=== PATIENT | male | born 1980 | race Caucasian/White ===

== ENCOUNTER 2017-10-05 14:59 | Emergency (ER) | payer MEDICARE, OTHER ==
[~2017-10-05] VITALS: Ht 190.5 cm; Wt 127.5 kg
[~2017-10-05 14:59] MED LIST: ALBU90OI INH; CYCL10 PO; DOXY100 PO; FLUO10 PO; FLUO20 PO; GABA100 PO; IBUP400 PO; IBUP600 PO; LANS15EC PO; NAPR220 PO; OXYACE5T PO; Percocet 5-3251 EACH PO; Synthroid25 MCG PO; TRAM50 PO; Valium5 MG PO; Venlafaxine HC100 MG PO
[2017-10-05] MEDS ORDERED: ZIPR20 PO (16:50)
[2017-10-05] MEDS ORDERED: NAPR550 PO (17:18)
[2017-10-05] MEDS ORDERED: Robaxin500 MG PO (17:18)
== END 2017-10-05 17:22 | disposition home or self-care (01) ==
LOC: ER 14:59
DX: S80.01XA Contusion of right knee, initial encounter (principal); M54.5 Low back pain; M54.6 Pain in thoracic spine; F17.200 Nicotine dependence, unspecified, uncomplicated; Z88.0 Allergy status to penicillin; Z88.8 Allergy status to other drugs, medicaments and biological substances; Z79.899 Other long term (current) drug therapy; V03.99XA Pedestrian with other conveyance injured in collision with car, pick-up truck or van, unspecified whether traffic or nontraffic accident, initial encounter
CPT/HCPCS: 72070; 72100; 73564; 96372; 99283; J1885

== ENCOUNTER 2017-10-06 08:35 | Day surgery (SDC) | payer MEDICARE, OTHER ==
[~2017-10-06 08:35] MED LIST changes: +NAPR550 PO; +Robaxin500 MG PO; +ZIPR20 PO
== END 2017-10-06 22:56 | disposition home or self-care (01) ==
LOC: US 08:35
PROVIDERS: Radiology Diagnostic Radiology
PROC: 0FB03ZX Excision of Liver, Percutaneous Approach, Diagnostic (ICD-10-PCS; principal; 2017-10-06 11:00)
DX: K76.0 Fatty (change of) liver, not elsewhere classified (principal); J45.909 Unspecified asthma, uncomplicated; F41.9 Anxiety disorder, unspecified; R74.8 Abnormal levels of other serum enzymes
CPT/HCPCS: 47000; 76942; 88307; 88313

== ENCOUNTER 2019-05-27 10:47 | Emergency (ER) | payer MEDICARE, OTHER ==
[~2019-05-27] VITALS: Ht 190.5 cm; Wt 136.1 kg
[2019-05-27] MEDS ORDERED: CYCL10 PO (11:18)
[2019-05-27] MEDS ORDERED: Naprosyn500 MG PO (11:18)
[2019-05-27] MEDS ORDERED: Norco 10-325 T1 EACH PO (11:18)
== END 2019-05-27 13:02 | disposition home or self-care (01) ==
LOC: ER 10:47
DX: M62.830 Muscle spasm of back (principal); F20.9 Schizophrenia, unspecified; F32.9 Major depressive disorder, single episode, unspecified; F17.200 Nicotine dependence, unspecified, uncomplicated; Z88.0 Allergy status to penicillin; Z88.8 Allergy status to other drugs, medicaments and biological substances; Z79.899 Other long term (current) drug therapy
CPT/HCPCS: 72070; 72100; 96372; 99283-25; J1885

== ENCOUNTER 2019-07-24 20:58 | Emergency (ER) | payer MEDICARE, OTHER ==
[~2019-07-24] VITALS: Ht 188 cm; Wt 129.3 kg
[~2019-07-24 20:58] MED LIST changes: +Naprosyn500 MG PO; +Norco 10-325 T1 EACH PO
[2019-07-25 00:26] LABS: Influenza A Negative (NEGATIVE); Influenza B Negative (NEGATIVE)
[2019-07-25] MEDS ORDERED: Prednisone50 MG PO (00:46)
[2019-07-25] MEDS ORDERED: Zithromax250 MG PO (00:46)
[2019-07-25] MEDS ORDERED: ALBU90OI INH (00:46)
== END 2019-07-25 01:05 | disposition home or self-care (01) ==
LOC: ER 20:58
PROVIDERS: Emergency Medicine
DX: J45.901 Unspecified asthma with (acute) exacerbation (principal); F17.200 Nicotine dependence, unspecified, uncomplicated; Z88.0 Allergy status to penicillin; Z88.8 Allergy status to other drugs, medicaments and biological substances
CPT/HCPCS: 71046; 87804; 94640; 99285-25; J1100

== ENCOUNTER 2020-11-06 12:57 | Emergency (ER) | payer MEDICARE, OTHER ==
[~2020-11-06] VITALS: Ht 185.4 cm; Wt 129.3 kg
[~2020-11-06 12:57] MED LIST changes: +GABAPENTIN600 MG PO; +Prednisone50 MG PO; +VENLAFAXINE HC225 MG PO; +ZIPRASIDONE HCL80 MG PO; +Zithromax250 MG PO
[2020-11-06 15:34] LABS: BASOPHILS ABSOLUTE AUTO 0.09 K/mm3 (0.00-0.23); BASOPHILS PERCENT AUTO 1 % (0-2); EOSINOPHILS ABSOLUTE AUTO 0.77 K/mm3 (0.00-0.68); EOSINOPHILS PERCENT AUTO 10 % (0-6); IMMATURE GRAN ABSOLUTE AUTO 0.02 K/mm3 (0.00-0.10); IMMATURE GRAN PERCENT AUTO 0 % (0-1); LYMPHOCYTES PERCENT AUTO 36 % (21-46); MONOCYTES ABSOLUTE AUTO 0.85 K/mm3 (0.16-1.47); MONOCYTES PERCENT AUTO 11 % (4-13); Mean Corpuscular HGB 23.1 pg (26.0-34.0); Mean Corpuscular HGB Conc 30.6 g/dL (31.5-36.5); Mean Corpuscular Volume 76 fL (80-100); Mean Platelet Volume 10.7 fL (9.1-12.4); NEUTROPHILS ABSOLUTE AUTO 3.29 K/mm3 (1.96-9.15); NEUTROPHILS PERCENT AUTO 42 % (41-73); Platelet Count 333 K/mm3 (150-400); RDW Standard Deviation 45.8 fL (35.1-46.3); Red Blood Cell Count 4.76 M/mm3 (4.30-5.90); White Blood Cell Count 7.82 K/mm3 (4.00-11.30)
[2020-11-06 15:48] LABS: Alanine Aminotransfer (ALT/SGP 86 U/L (12-78); Albumin, Blood 3.5 g/dL (3.4-5.0); Alk Phos 95 U/L (50-136); Anion Gap 5 mmol/L (6-16); Aspartate Aminotrans (AST/SGOT 43 U/L (12-37); Bilirubin, Total 0.2 mg/dL (0.1-1.0); Blood Urea Nitrogen 10 mg/dL (8-24); Bun/Creatinine Ratio 10.1 (12.0-20.0); CO2, Blood 29 mmol/L (21-32); Calcium, Blood 8.6 mg/dL (8.5-10.1); Chloride, Blood 108 mmol/L (98-108); Creatinine, Blood 0.99 mg/dL (0.60-1.20); Ethanol (Alcohol), Blood, Med <3 mg/dL; Globulin, Blood 3.5 g/dL (2.2-4.0); Glomerular Filtration Rate >60 (60-); Glucose, Blood 90 mg/dL (70-99); Potassium, Blood 3.9 mmol/L (3.5-5.5); Salicylate 3.5 mg/dL (2.8-20.0); Sodium, Blood 142 mmol/L (136-145)
[2020-11-06 15:49] LABS: Acetaminophen, Random <2.0 ug/mL (10.0-30.0)
[2020-11-06 16:55] LABS: Source, Urine Clean Catch
[2020-11-06 17:00] LABS: Bilirubin, Urine Neg (Neg); Blood, Urine Neg (Neg); Glucose Qualitative, Urine Neg (Neg); Ketones, Urine Neg (Neg); Leukocyte Esterase, Urine Neg (Neg); Nitrite, Urine Neg (Neg); Protein, Urine 1+ (Neg); Urobilinogen, Urine NORM (Normal)
[2020-11-06 17:17] LABS: U Amphetamine Screen Not Detected; U Barbituate Screen Not Detected; U Benzodiazapine Screen Not Detected; U Buprenorphine Screen Not Detected; U Cannabinoids Screen Not Detected; U Cocaine Screen Not Detected; U Methadone Screen Not Detected; U Methamphetamine Screen Not Detected; U Opiates Screen Not Detected; U Oxycodone Screen Not Detected; U Phencyclidine Screen Not Detected; U Propoxyphene Screen Not Detected
[2020-11-06 17:22] LABS: Color, Urine Yellow (P-Yellow)
[2020-11-06 17:23] LABS: Appearance, Urine Clear (Clear)
== END 2020-11-06 18:15 | disposition home or self-care (01) ==
LOC: ER 12:57
PROVIDERS: Physician Assistant
DX: F44.1 Dissociative fugue (principal); F17.200 Nicotine dependence, unspecified, uncomplicated; Z88.0 Allergy status to penicillin; Z88.8 Allergy status to other drugs, medicaments and biological substances
CPT/HCPCS: 36415; 70450; 72125; 80053; 82947; 85025; 93005; 93010; 99285-25; G0480; L0160

== ENCOUNTER 2021-02-27 10:51 | Day surgery (SDC) | payer MEDICARE, OTHER ==
[~2021-02-27] VITALS: Ht 188 cm; Wt 124.4 kg
[~2021-02-27 10:51] MED LIST changes: +ALBU90OI; +DOXY100; +FAMO20; +Neurontin 300300 MG; +TRAZ100; +VRAYLAR4.5 MG
== END 2021-02-27 12:53 | disposition home or self-care (01) ==
LOC: ORSCSDS 10:51
PROVIDERS: Student in an Organized Health Care Education/Training Program
PROC: 0DB68ZX Excision of Stomach, Via Natural or Artificial Opening Endoscopic, Diagnostic (ICD-10-PCS; principal; 2021-02-27 12:15)
PROC: 0DB98ZX Excision of Duodenum, Via Natural or Artificial Opening Endoscopic, Diagnostic (ICD-10-PCS; principal; 2021-02-27 12:15)
PROC: 0DB58ZX Excision of Esophagus, Via Natural or Artificial Opening Endoscopic, Diagnostic (ICD-10-PCS; principal; 2021-02-27 12:15)
PROC: 0DBF8ZX Excision of Right Large Intestine, Via Natural or Artificial Opening Endoscopic, Diagnostic (ICD-10-PCS; principal; 2021-02-27 12:15)
PROC: 0DB48ZX Excision of Esophagogastric Junction, Via Natural or Artificial Opening Endoscopic, Diagnostic (ICD-10-PCS; principal; 2021-02-27 12:15)
PROC: 0DBP8ZX Excision of Rectum, Via Natural or Artificial Opening Endoscopic, Diagnostic (ICD-10-PCS; principal; 2021-02-27 12:15)
PROC: 0DBG8ZX Excision of Left Large Intestine, Via Natural or Artificial Opening Endoscopic, Diagnostic (ICD-10-PCS; principal; 2021-02-27 12:15)
DX: R10.9 Unspecified abdominal pain (principal); K21.9 Gastro-esophageal reflux disease without esophagitis; K44.9 Diaphragmatic hernia without obstruction or gangrene; D64.9 Anemia, unspecified; R19.7 Diarrhea, unspecified; Z80.0 Family history of malignant neoplasm of digestive organs; F41.8 Other specified anxiety disorders; F20.9 Schizophrenia, unspecified; G47.33 Obstructive sleep apnea (adult) (pediatric); Z79.899 Other long term (current) drug therapy; F17.210 Nicotine dependence, cigarettes, uncomplicated
CPT/HCPCS: 88305; 88342; J2704; J7120

== ENCOUNTER 2021-07-22 22:58 | Emergency (ER) | payer MEDICARE, OTHER ==
[~2021-07-22] VITALS: Ht 188 cm; Wt 132.9 kg
[2021-07-23 00:43] LABS: BASOPHILS ABSOLUTE AUTO 0.08 K/mm3 (0.00-0.23); BASOPHILS PERCENT AUTO 1 % (0-2); EOSINOPHILS ABSOLUTE AUTO 0.66 K/mm3 (0.00-0.68); EOSINOPHILS PERCENT AUTO 8 % (0-6); Hematocrit 35.1 % (37.0-53.0); Hemoglobin 10.1 g/dL (13.5-17.5); IMMATURE GRAN ABSOLUTE AUTO 0.05 K/mm3 (0.00-0.10); IMMATURE GRAN PERCENT AUTO 1 % (0-1); LYMPHOCYTES ABSOLUTE AUTO 3.18 K/mm3 (0.84-5.20); LYMPHOCYTES PERCENT AUTO 37 % (21-46); MONOCYTES ABSOLUTE AUTO 0.84 K/mm3 (0.16-1.47); MONOCYTES PERCENT AUTO 10 % (4-13); Mean Corpuscular HGB 19.5 pg (26.0-34.0); Mean Corpuscular HGB Conc 28.8 g/dL (31.5-36.5); Mean Corpuscular Volume 68 fL (80-100); Mean Platelet Volume 10.3 fL (9.1-12.4); NEUTROPHILS ABSOLUTE AUTO 3.73 K/mm3 (1.96-9.15); NEUTROPHILS PERCENT AUTO 44 % (41-73); Platelet Count 368 K/mm3 (150-400); RDW Coefficient Variation 20.8 % (11.7-14.2); RDW Standard Deviation 49.7 fL (35.1-46.3); Red Blood Cell Count 5.18 M/mm3 (4.30-5.90); White Blood Cell Count 8.54 K/mm3 (4.00-11.30)
[2021-07-23 01:04] LABS: Alanine Aminotransfer (ALT/SGP 46 U/L (12-78); Albumin, Blood 3.4 g/dL (3.4-5.0); Albumin/Globulin Ratio 0.9 (0.8-1.8); Alk Phos 80 U/L (50-136); Anion Gap 4 mmol/L (6-16); Aspartate Aminotrans (AST/SGOT 23 U/L (12-37); Bilirubin, Total 0.1 mg/dL (0.1-1.0); Blood Urea Nitrogen 13 mg/dL (8-24); Bun/Creatinine Ratio 11.5 (12.0-20.0); CO2, Blood 28 mmol/L (21-32); Calcium, Blood 8.8 mg/dL (8.5-10.1); Chloride, Blood 111 mmol/L (98-108); Creatinine, Blood 1.13 mg/dL (0.60-1.20); Globulin, Blood 3.6 g/dL (2.2-4.0); Glomerular Filtration Rate >60 (60-); Glucose, Blood 113 mg/dL (70-99); Potassium, Blood 3.8 mmol/L (3.5-5.5); Sodium, Blood 143 mmol/L (136-145); Troponin I <0.015 ng/mL (0.000-0.040)
== END 2021-07-23 02:42 | disposition home or self-care (01) ==
LOC: ER 22:58
PROVIDERS: Emergency Medicine
DX: R07.9 Chest pain, unspecified (principal); E03.9 Hypothyroidism, unspecified; F20.9 Schizophrenia, unspecified; F17.200 Nicotine dependence, unspecified, uncomplicated
CPT/HCPCS: 71046; 80053; 83690; 84484; 85025; 93005; 93010

== ENCOUNTER 2023-03-30 16:28 | Emergency (ER) | payer MEDICARE, OTHER ==
[~2023-03-30] VITALS: Ht 188 cm; Wt 158.8 kg
[~2023-03-30 16:28] MED LIST changes: +NEURONTIN300 MG PO; +NORTRIPTYLINE H MC; +VENL75ER PO; +VRAYLAR6 MG PO
[2023-03-30 17:02] LABS: BASOPHILS ABSOLUTE AUTO 0.07 K/mm3 (0.00-0.23); BASOPHILS PERCENT AUTO 1 % (0-2); EOSINOPHILS ABSOLUTE AUTO 0.45 K/mm3 (0.00-0.68); EOSINOPHILS PERCENT AUTO 7 % (0-6); Hematocrit 38.6 % (37.0-53.0); Hemoglobin 12.1 g/dL (13.5-17.5); IMMATURE GRAN ABSOLUTE AUTO 0.02 K/mm3 (0.00-0.10); IMMATURE GRAN PERCENT AUTO 0 % (0-1); LYMPHOCYTES ABSOLUTE AUTO 1.97 K/mm3 (0.84-5.20); LYMPHOCYTES PERCENT AUTO 31 % (21-46); MONOCYTES ABSOLUTE AUTO 0.88 K/mm3 (0.16-1.47); MONOCYTES PERCENT AUTO 14 % (4-13); Mean Corpuscular HGB 22.7 pg (26.0-34.0); Mean Corpuscular HGB Conc 31.3 g/dL (31.5-36.5); Mean Corpuscular Volume 72 fL (80-100); Mean Platelet Volume 10.2 fL (9.1-12.4); NEUTROPHILS ABSOLUTE AUTO 2.96 K/mm3 (1.96-9.15); NEUTROPHILS PERCENT AUTO 47 % (41-73); Platelet Count 332 K/mm3 (150-400); RDW Coefficient Variation 17.6 % (11.7-14.2); RDW Standard Deviation 45.6 fL (35.1-46.3); Red Blood Cell Count 5.34 M/mm3 (4.30-5.90); White Blood Cell Count 6.35 K/mm3 (4.00-11.30)
[2023-03-30 17:37] LABS: Albumin/Globulin Ratio 1.2 (0.8-1.8); Bilirubin, Total 0.2 mg/dL (0.1-1.0); Bun/Creatinine Ratio 10.6 (12.0-20.0); Calcium, Blood 8.8 mg/dL (8.5-10.1); Creatinine, Blood 1.04 mg/dL (0.60-1.20); Globulin, Blood 3.3 g/dL (2.2-4.0); Potassium, Blood 3.7 mmol/L (3.5-5.5); Total Protein, Blood 7.3 g/dL (6.4-8.2)
[2023-03-30 20:06] VITALS: BP 133/90
== END 2023-03-30 20:09 | disposition left against medical advice (07) ==
LOC: ER 16:28
PROVIDERS: Student in an Organized Health Care Education/Training Program
DX: R07.9 Chest pain, unspecified (principal); Z53.21 Procedure and treatment not carried out due to patient leaving prior to being seen by health care provider
CPT/HCPCS: 71046; 80053; 84484; 85025; 93005; 93010; 99283-25

== ENCOUNTER 2024-01-20 11:59 | Emergency (ER) | payer MEDICARE, OTHER ==
[~2024-01-20] VITALS: Ht 188 cm; Wt 131.5 kg
[~2024-01-20 11:59] MED LIST changes: +BACL10 PO; +MELO7.5 PO; +PERP4 PO
[2024-01-20 12:50] VITALS: BP 132/85
[2024-01-20 13:12] LABS: BASOPHILS ABSOLUTE AUTO 0.08 K/mm3 (0.00-0.23); BASOPHILS PERCENT AUTO 1 % (0-2); EOSINOPHILS ABSOLUTE AUTO 0.38 K/mm3 (0.00-0.68); EOSINOPHILS PERCENT AUTO 5 % (0-6); Hematocrit 41.6 % (37.0-53.0); IMMATURE GRAN ABSOLUTE AUTO 0.03 K/mm3 (0.00-0.10); IMMATURE GRAN PERCENT AUTO 0 % (0-1); LYMPHOCYTES ABSOLUTE AUTO 2.45 K/mm3 (0.84-5.20); LYMPHOCYTES PERCENT AUTO 35 % (21-46); MONOCYTES ABSOLUTE AUTO 0.72 K/mm3 (0.16-1.47); MONOCYTES PERCENT AUTO 10 % (4-13); Mean Corpuscular HGB 23.6 pg (26.0-34.0); Mean Corpuscular HGB Conc 31.3 g/dL (31.5-36.5); Mean Corpuscular Volume 76 fL (80-100); NEUTROPHILS ABSOLUTE AUTO 3.36 K/mm3 (1.96-9.15); NEUTROPHILS PERCENT AUTO 48 % (41-73); Platelet Count 466 K/mm3 (150-400); RDW Coefficient Variation 16.1 % (11.7-14.2); RDW Standard Deviation 43.5 fL (35.1-46.3); White Blood Cell Count 7.02 K/mm3 (4.00-11.30)
[2024-01-20 13:44] LABS: Ethanol (Alcohol), Blood, Med <3 mg/dL; Salicylate 5.9 mg/dL (2.8-20.0)
[2024-01-20 13:47] LABS: Acetaminophen, Random <2.0 ug/mL (10.0-30.0); Alanine Aminotransfer (ALT/SGP 39 U/L (12-78); Albumin, Blood 3.9 g/dL (3.4-5.0); Alk Phos 114 U/L (50-136); Anion Gap 7 mmol/L (3-11); Aspartate Aminotrans (AST/SGOT 22 U/L (12-37); Bilirubin, Total 0.2 mg/dL (0.1-1.0); Blood Urea Nitrogen 12 mg/dL (8-24); Bun/Creatinine Ratio 12.5 (12.0-20.0); CO2, Blood 28 mmol/L (21-32); Calcium, Blood 9.3 mg/dL (8.5-10.1); Chloride, Blood 113 mmol/L (98-108); Creatinine, Blood 0.96 mg/dL (0.60-1.20); Glomerular Filtration Rate 102 (60-); Glucose, Blood 99 mg/dL (70-99); Potassium, Blood 4.5 mmol/L (3.5-5.5); Sodium, Blood 143 mmol/L (136-145); Total Protein, Blood 7.9 g/dL (6.4-8.2)
== END 2024-01-20 14:49 | disposition home or self-care (01) ==
LOC: ER 11:59
PROVIDERS: Nurse Practitioner
DX: F23 Brief psychotic disorder (principal); I10 Essential (primary) hypertension; F17.200 Nicotine dependence, unspecified, uncomplicated
CPT/HCPCS: 80053; 85025; 93005; 93010; 99283-25; G0480

== ENCOUNTER 2024-06-08 16:44 | Emergency (ER) | payer MEDICARE, OTHER ==
[~2024-06-08] VITALS: Ht 188 cm; Wt 139.2 kg
[2024-06-08 17:19] VITALS: BP 139/97
[2024-06-08] MEDS ORDERED: [UNRECOGNIZED DRUG - CODE] (19:26)
== END 2024-06-08 19:50 | disposition home or self-care (01) ==
LOC: ER 16:44
DX: S76.311A Strain of muscle, fascia and tendon of the posterior muscle group at thigh level, right thigh, initial encounter (principal); M25.561 Pain in right knee; G89.29 Other chronic pain; I10 Essential (primary) hypertension; F17.200 Nicotine dependence, unspecified, uncomplicated; Z79.899 Other long term (current) drug therapy; Z88.0 Allergy status to penicillin; Z88.8 Allergy status to other drugs, medicaments and biological substances
CPT/HCPCS: 73552; 99283-25

== ENCOUNTER 2024-09-12 06:35 | Emergency (ER) | payer MEDICARE, OTHER ==
[~2024-09-12] VITALS: Ht 188 cm; Wt 139.7 kg
[~2024-09-12 06:35] MED LIST changes: +[UNRECOGNIZED DRUG - CODE]
[2024-09-12 06:43] VITALS: BP 136/75
== END 2024-09-12 08:40 | disposition home or self-care (01) ==
LOC: ER 06:35
DX: J06.9 Acute upper respiratory infection, unspecified (principal); J45.909 Unspecified asthma, uncomplicated; Z88.0 Allergy status to penicillin
CPT/HCPCS: 99283

== ENCOUNTER 2024-12-17 00:21 | Observation (INO) | payer MEDICARE, OTHER ==
[~2024-12-17] VITALS: Ht 188 cm; Wt 131.5 kg
[2024-12-17 01:04] LABS: BASOPHILS PERCENT AUTO 1 % (0-2); EOSINOPHILS PERCENT AUTO 7 % (0-6); Hematocrit 43.9 % (37.0-53.0); Hemoglobin 14.3 g/dL (13.5-17.5); IMMATURE GRAN ABSOLUTE AUTO 0.02 K/mm3 (0.00-0.10); IMMATURE GRAN PERCENT AUTO 0 % (0-1); LYMPHOCYTES ABSOLUTE AUTO 2.91 K/mm3 (0.84-5.20); LYMPHOCYTES PERCENT AUTO 34 % (21-46); MONOCYTES ABSOLUTE AUTO 0.85 K/mm3 (0.16-1.47); MONOCYTES PERCENT AUTO 10 % (4-13); Mean Corpuscular HGB Conc 32.6 g/dL (31.5-36.5); Mean Corpuscular Volume 80 fL (80-100); Mean Platelet Volume 10.8 fL (9.1-12.4); NEUTROPHILS ABSOLUTE AUTO 4.15 K/mm3 (1.96-9.15); NEUTROPHILS PERCENT AUTO 48 % (41-73); Platelet Count 301 K/mm3 (150-400); RDW Coefficient Variation 15.9 % (11.7-14.2); RDW Standard Deviation 46.1 fL (35.1-46.3); White Blood Cell Count 8.63 K/mm3 (4.00-11.30)
[2024-12-17 01:17] LABS: Albumin, Blood 3.8 g/dL (3.4-5.0); Albumin/Globulin Ratio 1.1 (0.8-1.8); Bilirubin, Total 0.2 mg/dL (0.1-1.0); Bun/Creatinine Ratio 18.1 (12.0-20.0); Calcium, Blood 8.6 mg/dL (8.5-10.1); Creatinine, Blood 0.88 mg/dL (0.60-1.20); Globulin, Blood 3.5 g/dL (2.2-4.0); Total Protein, Blood 7.3 g/dL (6.4-8.2)
[2024-12-17] MEDS ORDERED: Aspirin 325 MG Tab PO ONE (01:40)
[2024-12-17 01:47] LABS: U Amphetamine Screen Not Detected; U Barbituate Screen Not Detected; U Benzodiazapine Screen Not Detected; U Buprenorphine Screen Not Detected; U Cannabinoids Screen Not Detected; U Cocaine Screen Not Detected; U Methadone Screen Not Detected; U Methamphetamine Screen Not Detected; U Opiates Screen Not Detected; U Oxycodone Screen Not Detected; U Phencyclidine Screen Not Detected
[2024-12-17 01:51] LABS: Lithium <0.20 mmol/L (0.60-1.20)
[2024-12-17] MEDS ORDERED: Ondansetron HCl 2 MG / ML 2ML Vial IV PRN (03:35)
[2024-12-17] MEDS ORDERED: Clopidogrel Bisulfate 75 MG Tab PO SCH (04:00)
[2024-12-17] MEDS ORDERED: Atorvastatin 40 MG Tab PO SCH (04:00)
[2024-12-17 04:14] LABS: Free Thyroxine 0.86 ng/dL (0.70-1.60); Thyroid Stimulating Hormone 6.61 uIU/mL (0.360-4.800)
[2024-12-17 04:32] VITALS: BP 120/74
[2024-12-17 06:17] VITALS: BP 136/87
[2024-12-17 07:27] VITALS: BP 119/89
[2024-12-17] MEDS ORDERED: CARIPRAZINE HYDROCHLORIDE 6 MG PO SCH (09:00)
[2024-12-17] MEDS ORDERED: Gabapentin 300 MG Cap PO SCH (09:00)
[2024-12-17] MEDS ORDERED: Aspirin 81 MG Chew PO SCH (09:00)
[2024-12-17] MEDS ORDERED: Enoxaparin 40 MG/0.4 ML SYR SC SCH (09:00)
[2024-12-17 11:39] VITALS: BP 134/90
[2024-12-17 15:37] VITALS: BP 125/90
[2024-12-17 19:33] VITALS: BP 135/90
[2024-12-18] VITALS (20 sets, daily range): BP systolic 122–153; BP diastolic 72–107
[2024-12-18] MEDS ORDERED: Lithium Carbonate 300 MG TabCR PO SCH (00:50)
[2024-12-18] MEDS ORDERED: ATROPINE SULFATE 1 MG/ML IV ONE (03:40)
[2024-12-18] MEDS ORDERED: Atropine Sulfate 0.1 MG/ML 10ML SYR IV ONE ×2 (04:10→05:30)
[2024-12-18 05:17] LABS: BASOPHILS ABSOLUTE AUTO 0.07 K/mm3 (0.00-0.23); BASOPHILS PERCENT AUTO 1 % (0-2); EOSINOPHILS ABSOLUTE AUTO 0.53 K/mm3 (0.00-0.68); EOSINOPHILS PERCENT AUTO 8 % (0-6); Hematocrit 40.7 % (37.0-53.0); Hemoglobin 13.2 g/dL (13.5-17.5); IMMATURE GRAN ABSOLUTE AUTO 0.02 K/mm3 (0.00-0.10); IMMATURE GRAN PERCENT AUTO 0 % (0-1); LYMPHOCYTES ABSOLUTE AUTO 2.07 K/mm3 (0.84-5.20); LYMPHOCYTES PERCENT AUTO 31 % (21-46); MONOCYTES ABSOLUTE AUTO 0.65 K/mm3 (0.16-1.47); MONOCYTES PERCENT AUTO 10 % (4-13); Mean Corpuscular HGB 26.2 pg (26.0-34.0); Mean Corpuscular HGB Conc 32.4 g/dL (31.5-36.5); Mean Corpuscular Volume 81 fL (80-100); Mean Platelet Volume 10.2 fL (9.1-12.4); NEUTROPHILS ABSOLUTE AUTO 3.39 K/mm3 (1.96-9.15); NEUTROPHILS PERCENT AUTO 50 % (41-73); Platelet Count 245 K/mm3 (150-400); RDW Coefficient Variation 15.8 % (11.7-14.2); RDW Standard Deviation 46.6 fL (35.1-46.3); Red Blood Cell Count 5.04 M/mm3 (4.30-5.90); White Blood Cell Count 6.73 K/mm3 (4.00-11.30)
[2024-12-18] MEDS ORDERED: Atropine Sulfate 0.1 MG/ML 10ML SYR IV PRN (05:40)
[2024-12-18 05:42] LABS: Albumin, Blood 3.5 g/dL (3.4-5.0); Albumin/Globulin Ratio 1.1 (0.8-1.8); Bilirubin, Total 0.6 mg/dL (0.1-1.0); Bun/Creatinine Ratio 15.8 (12.0-20.0); Calcium, Blood 8.8 mg/dL (8.5-10.1); Creatinine, Blood 0.89 mg/dL (0.60-1.20); Globulin, Blood 3.1 g/dL (2.2-4.0); Total Protein, Blood 6.6 g/dL (6.4-8.2)
[2024-12-18] MEDS ORDERED: Levothyroxine Sodium 0.025 MG Tab PO SCH (06:00)
[2024-12-18 09:06] LABS: Source, Urine Clean Catch
[2024-12-18 09:17] LABS: Appearance, Urine Clear (Clear); Bilirubin, Urine Neg (Neg); Blood, Urine Neg (Neg); Color, Urine Pale Yellow (P-Yellow); Glucose Qualitative, Urine Neg (Neg); Ketones, Urine Neg (Neg); Leukocyte Esterase, Urine Neg (Neg); Nitrite, Urine Neg (Neg); Protein, Urine Neg (Neg); Specific Gravity, Urine 1.015 (1.003-1.022); Urobilinogen, Urine NORM (Normal)
[2024-12-18] MEDS ORDERED: CARIPRAZINE HYDROCHLORIDE 6 MG PO SCH (21:00)
[2024-12-19] VITALS (9 sets, daily range): BP systolic 109–141; BP diastolic 72–90
[2024-12-19] MEDS ORDERED: ASPI81CH PO (11:46)
[2024-12-19] MEDS ORDERED: CLOP75 PO (11:46)
[2024-12-19] MEDS ORDERED: ATOR40TA PO (11:46)
== END 2024-12-19 13:30 | disposition home or self-care (01) ==
LOC: ER 00:21 → MEDS 00:22 → ERHOLD 00:22 → ICUE 00:22 → MEDS 04:30 → ICUE 12-18 04:35
PROVIDERS: Student in an Organized Health Care Education/Training Program; ADMIT Internal Medicine
DX: G45.9 Transient cerebral ischemic attack, unspecified (principal); R00.1 Bradycardia, unspecified; R47.01 Aphasia; I10 Essential (primary) hypertension; D50.9 Iron deficiency anemia, unspecified; F25.0 Schizoaffective disorder, bipolar type; F17.210 Nicotine dependence, cigarettes, uncomplicated; E78.5 Hyperlipidemia, unspecified; E03.9 Hypothyroidism, unspecified; G93.40 Encephalopathy, unspecified; G47.33 Obstructive sleep apnea (adult) (pediatric); Z79.899 Other long term (current) drug therapy; Z88.0 Allergy status to penicillin; Z88.8 Allergy status to other drugs, medicaments and biological substances
CPT/HCPCS: 70450; 70496; 70498; 80053; 80178; 81003; 83735; 83880; 84439; 84443; 85025; 93005; 93010; 93306; 94660; 94762; 96372; 99285-25; A9270; G0378; J1650; J2405; Q9967

== ENCOUNTER 2024-12-31 00:14 | Emergency (ER) | payer MEDICARE, OTHER ==
[~2024-12-31] VITALS: Ht 188 cm; Wt 133.8 kg
[~2024-12-31 00:14] MED LIST changes: +ASPI81CH PO; +ATOR40TA PO; +CLOP75 PO
[2024-12-31 01:11] LABS: BASOPHILS ABSOLUTE AUTO 0.06 K/mm3 (0.00-0.23); BASOPHILS PERCENT AUTO 1 % (0-2); EOSINOPHILS ABSOLUTE AUTO 0.69 K/mm3 (0.00-0.68); EOSINOPHILS PERCENT AUTO 10 % (0-6); Hematocrit 37.6 % (37.0-53.0); Hemoglobin 12.3 g/dL (13.5-17.5); IMMATURE GRAN ABSOLUTE AUTO 0.02 K/mm3 (0.00-0.10); IMMATURE GRAN PERCENT AUTO 0 % (0-1); LYMPHOCYTES ABSOLUTE AUTO 2.36 K/mm3 (0.84-5.20); LYMPHOCYTES PERCENT AUTO 33 % (21-46); MONOCYTES ABSOLUTE AUTO 0.66 K/mm3 (0.16-1.47); MONOCYTES PERCENT AUTO 9 % (4-13); Mean Corpuscular HGB 26.7 pg (26.0-34.0); Mean Corpuscular HGB Conc 32.7 g/dL (31.5-36.5); Mean Corpuscular Volume 82 fL (80-100); Mean Platelet Volume 10.6 fL (9.1-12.4); NEUTROPHILS PERCENT AUTO 47 % (41-73); Platelet Count 299 K/mm3 (150-400); RDW Coefficient Variation 15.7 % (11.7-14.2); RDW Standard Deviation 46.4 fL (35.1-46.3); White Blood Cell Count 7.09 K/mm3 (4.00-11.30)
[2024-12-31 01:31] LABS: Albumin, Blood 3.5 g/dL (3.4-5.0); Bilirubin, Total 0.3 mg/dL (0.1-1.0); Bun/Creatinine Ratio 18.3 (12.0-20.0); Calcium, Blood 9.1 mg/dL (8.5-10.1); Creatinine, Blood 0.99 mg/dL (0.60-1.20); Globulin, Blood 3.5 g/dL (2.2-4.0); Potassium, Blood 3.5 mmol/L (3.5-5.5)
[2024-12-31] MEDS ORDERED: Dexamethasone Sod Phos 10 MG/ML 1ML VIAL PO ONE (04:40)
[2024-12-31 05:01] VITALS: BP 132/87
[2024-12-31 05:52] LABS: Influenza A, PCR NEGATIVE (NEGATIVE); Influenza B, PCR NEGATIVE (NEGATIVE); Resp Syncytial Virus, PCR NEGATIVE (NEGATIVE)
[2024-12-31 07:05] LABS: SARS-Cov-2 (COVID-19) PCR, MMC POSITIVE (NEGATIVE)
== END 2024-12-31 05:08 | disposition home or self-care (01) ==
LOC: ER 00:14
PROVIDERS: Emergency Medicine; Student in an Organized Health Care Education/Training Program
DX: U07.1 COVID-19 (principal); G47.33 Obstructive sleep apnea (adult) (pediatric); J35.1 Hypertrophy of tonsils; I10 Essential (primary) hypertension; Z88.0 Allergy status to penicillin; Z88.8 Allergy status to other drugs, medicaments and biological substances; Z79.82 Long term (current) use of aspirin; Z79.899 Other long term (current) drug therapy; F17.200 Nicotine dependence, unspecified, uncomplicated; Z59.89 Other problems related to housing and economic circumstances
CPT/HCPCS: 0241U; 71046; 80053; 83880; 84484; 85025; 93005; 93010; 99284-25; J1100

== ENCOUNTER 2025-02-09 20:49 | Emergency (ER) | payer MEDICARE, OTHER ==
[~2025-02-09] VITALS: Ht 188 cm; Wt 134.3 kg
[~2025-02-09 20:49] MED LIST changes: +ACET500 PO; +LAMOTRIGINE25 M4 PO; +LIDO700A20 TOP; +RISPERIDONE110 PO
[2025-02-09 21:24] LABS: BASOPHILS ABSOLUTE AUTO 0.08 K/mm3 (0.00-0.23); BASOPHILS PERCENT AUTO 1 % (0-2); EOSINOPHILS ABSOLUTE AUTO 0.55 K/mm3 (0.00-0.68); EOSINOPHILS PERCENT AUTO 5 % (0-6); Hematocrit 42.6 % (37.0-53.0); Hemoglobin 13.7 g/dL (13.5-17.5); IMMATURE GRAN ABSOLUTE AUTO 0.05 K/mm3 (0.00-0.10); IMMATURE GRAN PERCENT AUTO 1 % (0-1); LYMPHOCYTES ABSOLUTE AUTO 2.78 K/mm3 (0.84-5.20); LYMPHOCYTES PERCENT AUTO 26 % (21-46); MONOCYTES ABSOLUTE AUTO 0.90 K/mm3 (0.16-1.47); MONOCYTES PERCENT AUTO 9 % (4-13); Mean Corpuscular HGB Conc 32.2 g/dL (31.5-36.5); Mean Corpuscular Volume 82 fL (80-100); NEUTROPHILS ABSOLUTE AUTO 6.22 K/mm3 (1.96-9.15); NEUTROPHILS PERCENT AUTO 59 % (41-73); NRBC ABSOLUTE 0.00 K/mm3 (0.00-0.02); NRBC Auto 0.0 /100 WBC (0.0-0.2); Platelet Count 342 K/mm3 (150-400); RDW Coefficient Variation 15.4 % (11.7-14.2); RDW Standard Deviation 46.6 fL (35.1-46.3)
[2025-02-09 21:33] LABS: Alanine Aminotransfer (ALT/SGP 40.0 U/L (12-78); Albumin, Blood 3.9 g/dL (3.4-5.0); Albumin/Globulin Ratio 1.1 (0.8-1.8); Anion Gap 7.0 mmol/L (3-11); Aspartate Aminotrans (AST/SGOT 18.0 U/L (12-37); Bilirubin, Total 0.2 mg/dL (0.1-1.0); Blood Urea Nitrogen 10.0 mg/dL (8-24); CO2, Blood 28.0 mmol/L (21-32); Calcium, Blood 8.8 mg/dL (8.5-10.1); Chloride, Blood 109.0 mmol/L (98-108); Creatinine, Blood 0.88 mg/dL (0.60-1.20); Globulin, Blood 3.4 g/dL (2.2-4.0); Glucose, Blood 115.0 mg/dL (70-99); Potassium, Blood 3.6 mmol/L (3.5-5.5); Sodium, Blood 140.0 mmol/L (136-145); Total Protein, Blood 7.3 g/dL (6.4-8.2)
[2025-02-10] MEDS ORDERED: ATOR40TA PO (00:08)
[2025-02-10] MEDS ORDERED: EUTHYROX25 MC1 PO (00:08)
[2025-02-10] MEDS ORDERED: LAMO25 PO (00:10)
[2025-02-10] MEDS ORDERED: RISP1 PO (00:10)
[2025-02-10] MEDS ORDERED: VRAYLAR6 MG PO (00:11)
[2025-02-10] MEDS ORDERED: LORA2 PO (00:11)
[2025-02-10 00:39] LABS: D-Dimer, Quantitative <0.19 mg/L FEU (0.00-0.52); Prothrombin Time Results 10.9 Sec (9.7-11.5)
[2025-02-10 02:15] VITALS: BP 131/80
== END 2025-02-10 02:18 | disposition home or self-care (01) ==
LOC: ER 20:49
PROVIDERS: Emergency Medicine; Student in an Organized Health Care Education/Training Program
DX: R07.89 Other chest pain (principal); Z68.38 Body mass index [BMI] 38.0-38.9, adult; R73.9 Hyperglycemia, unspecified; Z88.0 Allergy status to penicillin; Z88.8 Allergy status to other drugs, medicaments and biological substances; Z79.82 Long term (current) use of aspirin; Z79.899 Other long term (current) drug therapy; F17.200 Nicotine dependence, unspecified, uncomplicated; Z59.89 Other problems related to housing and economic circumstances
CPT/HCPCS: 71046; 80053; 83690; 84484; 85025; 85379; 85610; 85730; 93005; 93010; 99285-25

== ENCOUNTER 2025-02-23 20:43 | Emergency (ER) | payer OTHER, MEDICARE ==
[~2025-02-23] VITALS: Ht 188 cm; Wt 131.5 kg
[~2025-02-23 20:43] MED LIST changes: +EUTHYROX25 MC1 PO; +LAMO25 PO; +LORA2 PO; +RISP1 PO
[2025-02-23] MEDS ORDERED: Robaxin750 MG PO (21:51)
[2025-02-23 22:12] VITALS: BP 122/68
== END 2025-02-23 22:16 | disposition home or self-care (01) ==
LOC: ER 20:43
DX: S83.91XA Sprain of unspecified site of right knee, initial encounter (principal); E03.9 Hypothyroidism, unspecified; E78.5 Hyperlipidemia, unspecified; F17.210 Nicotine dependence, cigarettes, uncomplicated; W01.0XXA Fall on same level from slipping, tripping and stumbling without subsequent striking against object, initial encounter; Z79.899 Other long term (current) drug therapy; Z88.0 Allergy status to penicillin; Z88.8 Allergy status to other drugs, medicaments and biological substances
CPT/HCPCS: 73562-RT; 73610; 99283-25; A9270

== ENCOUNTER 2025-02-24 04:16 | Emergency (ER) | payer MEDICARE, OTHER ==
[~2025-02-24] VITALS: Ht 188 cm; Wt 131.5 kg
[~2025-02-24 04:16] MED LIST changes: +Robaxin750 MG PO
[2025-02-24 04:25] VITALS: BP 142/89
[2025-02-24] MEDS ORDERED: Bacitracin Zinc Oint 1GRAM UD Packet TOP ONE (04:55)
== END 2025-02-24 05:18 | disposition home or self-care (01) ==
LOC: ER 04:16
DX: S30.811A Abrasion of abdominal wall, initial encounter (principal); E03.9 Hypothyroidism, unspecified; E78.5 Hyperlipidemia, unspecified; F17.210 Nicotine dependence, cigarettes, uncomplicated; F17.290 Nicotine dependence, other tobacco product, uncomplicated; X58.XXXA Exposure to other specified factors, initial encounter; Z79.899 Other long term (current) drug therapy; Z88.0 Allergy status to penicillin; Z88.8 Allergy status to other drugs, medicaments and biological substances
CPT/HCPCS: 90471; 90715; 99282-25

== ENCOUNTER 2025-03-12 08:24 | Emergency (ER) | payer MEDICARE, OTHER ==
[~2025-03-12] VITALS: Ht 188 cm; Wt 136.1 kg
[2025-03-12 08:52] VITALS: BP 131/74
== END 2025-03-12 09:46 | disposition home or self-care (01) ==
LOC: ER 08:24
DX: S63.91XA Sprain of unspecified part of right wrist and hand, initial encounter (principal); E03.9 Hypothyroidism, unspecified; E78.5 Hyperlipidemia, unspecified; F17.210 Nicotine dependence, cigarettes, uncomplicated; F17.290 Nicotine dependence, other tobacco product, uncomplicated; Z88.0 Allergy status to penicillin; Z88.3 Allergy status to other anti-infective agents; Z88.8 Allergy status to other drugs, medicaments and biological substances; Z79.890 Hormone replacement therapy; Z79.899 Other long term (current) drug therapy; W22.8XXA Striking against or struck by other objects, initial encounter
CPT/HCPCS: 73130

== ENCOUNTER → 2025-05-15 | Outpatient (CLI) | payer MEDICARE, OTHER ==
[2025-05-15 16:28] LABS: BASOPHILS ABSOLUTE AUTO 0.06 K/mm3 (0.00-0.23); BASOPHILS PERCENT AUTO 1 % (0-2); EOSINOPHILS ABSOLUTE AUTO 0.32 K/mm3 (0.00-0.68); EOSINOPHILS PERCENT AUTO 6 % (0-6); Hematocrit 44.1 % (37.0-53.0); Hemoglobin 14.3 g/dL (13.5-17.5); IMMATURE GRAN ABSOLUTE AUTO 0.01 K/mm3 (0.00-0.10); IMMATURE GRAN PERCENT AUTO 0 % (0-1); LYMPHOCYTES ABSOLUTE AUTO 1.60 K/mm3 (0.84-5.20); LYMPHOCYTES PERCENT AUTO 29 % (21-46); MONOCYTES ABSOLUTE AUTO 0.53 K/mm3 (0.16-1.47); MONOCYTES PERCENT AUTO 10 % (4-13); Mean Corpuscular HGB Conc 32.4 g/dL (31.5-36.5); Mean Corpuscular Volume 83 fL (80-100); NEUTROPHILS ABSOLUTE AUTO 3.04 K/mm3 (1.96-9.15); NEUTROPHILS PERCENT AUTO 55 % (41-73); NRBC ABSOLUTE 0.00 K/mm3 (0.00-0.02); NRBC Auto 0.0 /100 WBC (0.0-0.2); Platelet Count 294 K/mm3 (150-400); RDW Coefficient Variation 14.8 % (11.7-14.2); RDW Standard Deviation 44.9 fL (35.1-46.3)
[2025-05-15 20:56] LABS: Alanine Aminotransfer (ALT/SGP 70 U/L (12-78); Albumin, Blood 4.3 g/dL (3.4-5.0); Albumin/Globulin Ratio 1.4 (0.8-1.8); Anion Gap 8 mmol/L (3-11); Aspartate Aminotrans (AST/SGOT 37 U/L (12-37); Bilirubin, Total 0.3 mg/dL (0.1-1.0); Blood Urea Nitrogen 11 mg/dL (8-24); CHOL/HDL RATIO 6.0; CO2, Blood 25 mmol/L (21-32); Calcium, Blood 9.3 mg/dL (8.5-10.1); Chloride, Blood 110 mmol/L (98-108); Cholesterol 205 mg/dL (50-200); Creatinine, Blood 0.92 mg/dL (0.60-1.20); Globulin, Blood 3.1 g/dL (2.2-4.0); Glucose, Blood 110 mg/dL (70-99); HDL Cholesterol 34 mg/dL (>39); LDL/HDL RATIO 3.0; Low Density Lipoprotein Chol 101 mg/dL (0-110); Potassium, Blood 3.9 mmol/L (3.5-5.5); Sodium, Blood 139 mmol/L (136-145); Thyroid Stimulating Hormone 1.630 uIU/mL (0.360-4.800); Total Protein, Blood 7.4 g/dL (6.4-8.2); Triglycerides 350 mg/dL (30-160); Very Low Density Lipoprot Chol 70 mg/dL (6-32)
== END ==
LOC: LAB SHORT 08:15 → LAB 08:15
PROVIDERS: Student in an Organized Health Care Education/Training Program
DX: Z00.00 Encounter for general adult medical examination without abnormal findings (principal); F25.0 Schizoaffective disorder, bipolar type; E03.9 Hypothyroidism, unspecified; Z79.899 Other long term (current) drug therapy
CPT/HCPCS: 80053; 80061; 83036; 84443; 85025

== ENCOUNTER 2025-07-05 02:25 | Emergency (ER) | payer MEDICARE, OTHER ==
[~2025-07-05] VITALS: Ht 188 cm; Wt 131.5 kg
[2025-07-05 02:32] VITALS: BP 143/94
== END 2025-07-05 06:00 | disposition home or self-care (01) ==
LOC: ER 02:25
DX: S83.92XA Sprain of unspecified site of left knee, initial encounter (principal); S33.5XXA Sprain of ligaments of lumbar spine, initial encounter; F17.210 Nicotine dependence, cigarettes, uncomplicated; F17.290 Nicotine dependence, other tobacco product, uncomplicated; E03.9 Hypothyroidism, unspecified; E78.5 Hyperlipidemia, unspecified; X50.9XXA Other and unspecified overexertion or strenuous movements or postures, initial encounter; Z68.37 Body mass index [BMI] 37.0-37.9, adult; Z79.899 Other long term (current) drug therapy; Z88.0 Allergy status to penicillin; Z88.1 Allergy status to other antibiotic agents
CPT/HCPCS: 73562-LT; 99283-25